=== PATIENT | male | born 1975 | race Caucasian/White ===

== ENCOUNTER 2019-03-23 08:35 | Emergency (ER) | payer OTHER ==
[~2019-03-23] VITALS: Ht 198.1 cm; Wt 124.7 kg
[~2019-03-23 08:35] MED LIST: Aspirin EC81 MG PO; Mirapex0.25 MG PO; STELARA90 MG/1 ML IM
[2019-03-23] MEDS ORDERED: ROPI.25 PO ×2 (10:05→10:09)
[2019-03-23] MEDS ORDERED: STELARA45 MG/0.1 SC (10:06)
== END 2019-03-23 11:52 | disposition home or self-care (01) ==
LOC: ER 08:35
DX: G25.81 Restless legs syndrome (principal); G47.30 Sleep apnea, unspecified; Z91.018 Allergy to other foods; Z79.899 Other long term (current) drug therapy
CPT/HCPCS: 99282

== ENCOUNTER 2023-03-20 22:51 | Emergency (ER) | payer OTHER ==
[~2023-03-20] VITALS: Ht 195.6 cm; Wt 113.4 kg
[~2023-03-20 22:51] MED LIST changes: +ROPI.25 PO; +STELARA45 MG/0.1 SC
[2023-03-21 00:04] LABS: BASOPHILS ABSOLUTE AUTO 0.06 K/mm3 (0.00-0.23); BASOPHILS PERCENT AUTO 1 % (0-2); EOSINOPHILS ABSOLUTE AUTO 0.13 K/mm3 (0.00-0.68); EOSINOPHILS PERCENT AUTO 2 % (0-6); Hematocrit 42.3 % (37.0-53.0); Hemoglobin 14.1 g/dL (13.5-17.5); IMMATURE GRAN ABSOLUTE AUTO 0.05 K/mm3 (0.00-0.10); IMMATURE GRAN PERCENT AUTO 1 % (0-1); LYMPHOCYTES ABSOLUTE AUTO 2.13 K/mm3 (0.84-5.20); LYMPHOCYTES PERCENT AUTO 24 % (21-46); MONOCYTES ABSOLUTE AUTO 0.42 K/mm3 (0.16-1.47); MONOCYTES PERCENT AUTO 5 % (4-13); Mean Corpuscular HGB 29.1 pg (26.0-34.0); Mean Corpuscular HGB Conc 33.3 g/dL (31.5-36.5); Mean Corpuscular Volume 87 fL (80-100); Mean Platelet Volume 10.9 fL (9.1-12.4); NEUTROPHILS ABSOLUTE AUTO 6.12 K/mm3 (1.96-9.15); NEUTROPHILS PERCENT AUTO 69 % (41-73); RDW Coefficient Variation 12.2 % (11.7-14.2); RDW Standard Deviation 39.1 fL (35.1-46.3); Red Blood Cell Count 4.85 M/mm3 (4.30-5.90); White Blood Cell Count 8.91 K/mm3 (4.00-11.30)
[2023-03-21 00:09] LABS: Albumin, Blood 3.1 g/dL (3.4-5.0); Bilirubin, Total 0.4 mg/dL (0.1-1.0); Bun/Creatinine Ratio 20.1 (12.0-20.0); Calcium, Blood 7.2 mg/dL (8.5-10.1); Creatinine, Blood 0.95 mg/dL (0.60-1.20); Globulin, Blood 3.2 g/dL (2.2-4.0); Potassium, Blood 3.7 mmol/L (3.5-5.5); Total Protein, Blood 6.3 g/dL (6.4-8.2)
[2023-03-21 00:20] LABS: Platelet Count 182 K/mm3 (150-400)
[2023-03-21] MEDS ORDERED: TALTZ AUTO80 MG/1 M1 SQ (02:24)
[2023-03-21] MEDS ORDERED: PRAM.5 PO (02:24)
[2023-03-21] MEDS ORDERED: ONDA4 PO (02:40)
[2023-03-21 03:05] VITALS: BP 109/71
== END 2023-03-21 03:06 | disposition home or self-care (01) ==
LOC: ER 22:51
PROVIDERS: Physician Assistant
DX: R55 Syncope and collapse (principal); G25.81 Restless legs syndrome; Z79.899 Other long term (current) drug therapy
CPT/HCPCS: 70450; 80053; 85025; 93005; 93010; 96374; 99284-25; J2405